=== PATIENT | male | born 1995 | race African-American/Black ===

== ENCOUNTER 2019-09-29 12:44 | Emergency (ER) | payer MEDICAID ==
[~2019-09-29] VITALS: Ht 172.7 cm; Wt 74.0 kg
[2019-09-29 12:52] VITALS: BP 108/61
[2019-09-29] MEDS ORDERED: KETOROLAC 30MG/ML VIAL IM ONE (16:00)
[2019-09-29 16:13] LABS: CLARITY URINE CLEAR (CLEAR); COLOR URINE YELLOW (YELLOW); KETONES URINE NEGATIVE (NEGATIVE); LEUKOCYTE ESTERASE URINE NEGATIVE (NEGATIVE); NITRITE URINE NEGATIVE (NEGATIVE); OCCULT BLOOD URINE NEGATIVE (NEGATIVE); PH URINE 8.5 (4.5-8.0); PROTEIN URINE NEGATIVE (NEGATIVE); SPECIFIC GRAVITY URINE 1.014 (1.005-1.030); UROBILINOGEN URINE 0.2 E.U./dL (0.2-1.0)
[2019-09-29] MEDS ORDERED: IBUPROFEN 600MG TABLET PO ONE (16:15)
== END 2019-09-29 16:50 | disposition home or self-care (01) ==
LOC: ER 12:44
DX: M54.5 Low back pain (principal)
CPT/HCPCS: 81003; 99283; J1885